=== PATIENT | female | born 1960 | race Caucasian/White ===

== ENCOUNTER → 2017-02-01 | Outpatient (CLI) | payer OTHER ==
--- NOTE | 2017-02-01 14:43 | DI ---
MRI LEFT KNEE SCAN, 02/01/2017 8:49 AM: Clinical History: Medial left knee pain. Previous Exam: None at this facility. Technique: Axial, coronal, and sagittal PD and fat saturated PD; axial T1 weighted. There is a focal amount of edema in the subcutaneous tissues anterior to the patella and patellar ten don. A large joint effusion is present with synovitis in the suprapatellar bursa. A large plica is pr esent coursing transversely superior to the patella. There is synovitis in the region of Hoffa's fat pad. There is intermediate signal intensity in the medial patellofemoral ligament and the medial reti naculum consistent with chronic partial tears. The MCL, and ACL are normal. There are focal partial t ears in the superior aspect of the PCL and in the LCL at its attachment to the lateral femoral condyl e. There is a radial tear in the body of the medial meniscus and partial chronic tears are present in the meniscofemoral and meniscotibial ligaments at this location. The lateral meniscus, the quadricep s and popliteus tendons in the tendon of the lateral head of the gastrocnemius muscle are normal. The re is tendinosis in the proximal and distal portions of the patellar tendon. A chronic partial tears present in the tendon of the medial head of the gastrocnemius muscle. 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 There is virtually co mplete erosion of the cartilaginous surfaces of the medial and lateral facets of the patella. The art icular surface of the femur in the patellofemoral compartment is intact. The articular surfaces of th e lateral compartment are normal. Readin. Large joint effusion with synovitis in the suprapatellar bursa and around Hoffa's fat pad. A plic a is present coursing transversely superior to the patella. There is a radial tear in the body of the medial meniscus with evidence of chronic tears of the meniscofemoral and meniscotibial ligaments and of the medial patellofemoral ligament and the medial retinaculum. Chronic partial tears are also bret dent in the PCL and LCL and in the tendon of the medial head of the gastrocnemius muscle. Grade 3 cho ndromalacia is present in the central portion of the medial femoral condyle and medial tibial plateau . Almost complete erosion is present in the medial and lateral patellar facets. 2. The MCL, ACL, lateral meniscus, the quadriceps and popliteus tendons and the tendon of the latera l head of the gastrocnemius muscle are normal. The articular surfaces of the lateral compartment are intact.
== END ==
LOC: MRI 08:44
PROVIDERS: ATTEND Orthopaedic Surgery
DX: M25.562 Pain in left knee (principal); M25.462 Effusion, left knee; M23.8X2 Other internal derangements of left knee
CPT/HCPCS: 73721